=== PATIENT | male | born 1935 | race Caucasian/White ===

== ENCOUNTER 2017-05-28 07:09 | Emergency (ER) | payer OTHER ==
[2017-05-28 08:12] LABS: Urine Bacteria <20 /HPF (NONE SEEN); Urine Culture Reflex Order NOT NEEDED
[2017-05-28 08:13] LABS: Urine Blood TRACE (NEG); Urine Glucose NEGATIVE (NEG); Urine Protein NEGATIVE (NEG); Urine Specific Gravity 1.015 (1.005-1.030)
--- NOTE | 2017-05-28 08:58 | EDPHYS ---
Physician Documentation [facility] Name: Evens Tsang Age: 81 yrs Sex: Male : 1935 Arrival Date: 05/28/2017 Time: 07:10 Bed 19 Private MD: Danika Comer H ED Physician Segun Sherman HPI: 05/28 07:26 This 81 yrs old Male presents to ER via Ambulatory with complaints of Urinary rn Retention. 07:26 This 81 yrs old Male presents to ER via Ambulatory with complaints of Urinary rn Retention. 07:26 The patient presents with urinary symptoms, unable to void. Onset: The symptoms/episode rn began/occurred this morning. Modifying factors: The symptoms are alleviated by nothing, the symptoms are aggravated by nothing. Severity of symptoms: At their worst the symptoms were moderate, in the emergency department the symptoms are unchanged. The patient has experienced a previous episode. Reports unable to void this AM, has happened once before, states last void last night. . Historical: - Allergies: 07:20 No Known Allergies; ss - Home Meds: 07:23 aspirin 81 mg Oral TbEC 1 tab once daily [Active]; gabapentin 100 mg oral cap 3 caps 3 hj times per day [Active]; - PMHx: 07:20 High Cholesterol; ss - PSHx: 07:20 Hernia repair; ss - Immunization history:: Adult Immunizations up to date. - Social history:: Smoking status: Patient/guardian denies using tobacco. - Family history:: not pertinent. - Hospitalizations: : No recent hospitalization is reported. ROS: 07:26 Constitutional: Negative for fever, chills, and weight loss, Eyes: Negative for injury, rn pain, redness, and discharge, Cardiovascular: Negative for chest pain, palpitations, and edema, Respiratory: Negative for shortness of breath, cough, wheezing, and pleuritic chest pain, Abdomen/GI: Negative for nausea, vomiting, diarrhea, and constipation, Back: Negative for injury and pain, MS/Extremity: Negative for injury and deformity, Skin: Negative for injury, rash, and discoloration, Neuro: Negative for headache, weakness, numbness, tingling, and seizure. Exam: 07:26 Constitutional: This is a well developed, well nourished patient who is awake, alert, rn pacing, appears uncomfortable Abdomen/GI: soft, mild suprapubic fullness and tenderness Neuro: Awake and alert, GCS 15, oriented to person, place, time, and situation. Cranial nerves II-XII grossly intact. Motor strength 5/5 in all extremities. Sensory grossly intact. Cerebellar exam normal. Normal gait. Vital Signs: 07:20 BP 159 / 101; Pulse 71; Resp 16; Temp 97.8(TE); Pulse Ox 97% on R/A; Weight 68.04 kg; ss Height 5 ft. 9 in. (175.26 cm); Pain 9/10; 09:12 BP 135 / 78; Pulse 70; Resp 18; Pulse Ox 100% on R/A; hj 07:20 Body Mass Index 22.15 (68.04 kg, 175.26 cm) ss MDM: 07:12 Patient medically screened. rn 08:55 Differential diagnosis: urinary retention. Data reviewed: vital signs, nurses notes, returned item clerk test result(s), and as a result, I will discharge patient. Counseling: I had a detailed discussion with the patient and/or guardian regarding: the historical points, exam findings, and any diagnostic results supporting the discharge/admit diagnosis, lab results, the need for outpatient follow up, to return to the emergency department if symptoms worsen or persist or if there are any questions or concerns that arise at home. Response to treatment: the patient's symptoms have markedly improved after treatment, and as a result, I will discharge patient. Special discussion: I discussed with the patient/guardian in detail that at this point there is no indication for admission to the hospital. It is understood, however, that if the symptoms persist or worsen the patient needs to return immediately for re-evaluation. Based on the history and exam findings, there is no indication for further emergent testing or inpatient evaluation. I discussed with the patient/guardian the need to see the urologist for further evaluation of the symptoms. ED course: Pt with urinary retention, feels much better, most likely due to sinemet, as just started 2 days ago, also with prostate problems, probably compounded, will dc home and instructed to either return for voiding trial or f/u with urology, wants to return here to avoid prolonged avendano. . 05/28 07:18 Order name: Urine Culture rn 05/28 07:18 Order name: Urine Microscopic Only; Complete Time: 08:25 rn 05/28 07:18 Order name: Avendano Leg Bag; Complete Time: 07:47 rn 05/28 07:18 Order name: Urine Dipstick-Ancillary (obtain specimen); Complete Time: 07:47 rn 05/28 07:41 Order name: Urine Dipstick--Ancillary (enter results) bd 05/28 07:42 Order name: Urine Dipstick-Ancillary; Complete Time: 08:25 EDMS Administered Medications: No medications were administered Disposition: 05/28/17 08:57 Discharged to Home. Impression: Urinary Retention. - Condition is Stable. - Discharge Instructions: Avendano Catheter Care, Adult, Urinary Retention, Acute, Male. - Medication Reconciliation Form, Thank You Letter, Antibiotic Education, Prescription Opioid Use form. - Follow up: Jared Jain MD; When: As needed; Reason: Recheck today's complaints, Re-evaluation by your physician. - Problem is new. - Symptoms have improved. Signatures: Dispatcher [employer] EDMS Segun Sherman MD MD rn Smirch, Shelby, RN RN ss Joaquin, Henry, RN RN
--- NOTE | 2017-05-28 08:58 | ER ---
Nurse's Notes [facility] Name: Evens Tsang Age: 81 yrs Sex: Male : 1935 Arrival Date: 05/28/2017 Time: 07:10 Bed 19 Private MD: Danika Comer H Diagnosis: Urinary Retention Presentation: 05/28 07:17 Presenting complaint: Patient states: unable to urinate since two this morning. Pt also ss reports he may be constipated as he has not had a BM in two days. Transition of care: patient was not received from another setting of care. Onset of symptoms was May 28, 2017. Care prior to arrival: None. 07:17 Method Of Arrival: Ambulatory ss 07:17 Acuity: MANISH 3 ss Triage Assessment: 07:21 General: Appears in no apparent distress. uncomfortable, Behavior is calm, cooperative, hj appropriate for age. Pain: Complains of pain in pelvis. Historical: - Allergies: 07:20 No Known Allergies; ss - Home Meds: 07:23 aspirin 81 mg Oral TbEC 1 tab once daily [Active]; gabapentin 100 mg oral cap 3 caps 3 hj times per day [Active]; - PMHx: 07:20 High Cholesterol; ss - PSHx: 07:20 Hernia repair; ss - Immunization history:: Adult Immunizations up to date. - Social history:: Smoking status: Patient/guardian denies using tobacco. - Family history:: not pertinent. - Hospitalizations: : No recent hospitalization is reported. Screenin:21 Abuse screen: Denies threats or abuse. Denies injuries from another. Nutritional hj screening: No deficits noted. Tuberculosis screening: No symptoms or risk factors identified. Fall Risk Fall in past 12 months (25 points). Vital Signs: 07:20 BP 159 / 101; Pulse 71; Resp 16; Temp 97.8(TE); Pulse Ox 97% on R/A; Weight 68.04 kg; ss Height 5 ft. 9 in. (175.26 cm); Pain 9/10; 09:12 BP 135 / 78; Pulse 70; Resp 18; Pulse Ox 100% on R/A; hj 07:20 Body Mass Index 22.15 (68.04 kg, 175.26 cm) ED Course: 07:10 Patient arrived in ED. as 07:10 Danika Comer DO is Private Physician. as 07:12 Segun Sherman MD is Attending Physician. rn 07:19 Triage completed. ss 07:20 Arm band placed on right wrist. ss 07:21 Jono Valdez, RN is Primary Nurse. hj 07:22 Patient has correct armband on for positive identification. Placed in gown. Bed in low hj position. Call light in reach. Side rails up X2. Adult w/ patient. 07:30 Crow cath inserted, using sterile technique, 16 Fr., by me, balloon inflated, to hj gravity drainage, urine specimen collected. returned mike urine. Patient tolerated well. 08:57 Jared Jain MD is Referral Physician. rn 09:10 No provider procedures requiring assistance completed. Patient did not have IV access hj during this emergency room visit. Administered Medications: No medications were administered Outcome: 08:57 Discharge ordered by MD. rn 09:11 Discharged to home ambulatory, with family. hj 09:11 Condition: stable 09:11 Discharge instructions given to patient, Instructed on discharge instructions, follow up and referral plans. Demonstrated understanding of instructions, follow-up care. 09:12 Patient left the ED. hj Signatures: Lary Villarreal Roman, MD MD rn Smirch, Shelby, RN RN Jono Valdez RN RN
[2017-05-28 09:18] VITALS: TEMP 97.8
[2017-05-28 09:19] VITALS: BP 135/78; O2SAT 100
== END 2017-05-28 09:12 | disposition home or self-care (01) ==
LOC: ER 07:09
DX: R33.9 Retention of urine, unspecified (principal); E78.00 Pure hypercholesterolemia, unspecified; Z79.82 Long term (current) use of aspirin
CPT/HCPCS: 51702; 81003; 81015; 87086; 87088; 99284

== ENCOUNTER 2017-05-29 11:38 | Emergency (ER) | payer OTHER ==
--- NOTE | 2017-05-29 13:43 | ER ---
Nurse's Notes [facility] Name: Evens Tsang Age: 81 yrs Sex: Male : 1935 Arrival Date: 05/29/2017 Time: 11:39 Bed 2 Private MD: Diagnosis: Encounter for avendano catheter removal Presentation: 05/29 11:44 Presenting complaint: Patient states: Dr Sherman put a catheter in me yesterday and told ph me to come back today around noon to have it taken out. Transition of care: patient was not received from another setting of care. Onset of symptoms was May 29, 2017. Care prior to arrival: None. 11:44 Method Of Arrival: Ambulatory ph 11:44 Acuity: MANISH 4 ph Triage Assessment: 12:00 General: Appears in no apparent distress. Behavior is calm, cooperative. la1 Historical: - Allergies: 11:54 No Known Allergies; ph - Home Meds: 11:54 aspirin 81 mg Oral TbEC 1 tab once daily [Active]; gabapentin 100 mg Oral cap 3 caps 3 ph times per day [Active]; - PMHx: 11:54 High Cholesterol; ph - PSHx: 11:54 Hernia repair; ph - Immunization history:: Adult Immunizations up to date. - Social history:: Smoking status: Patient/guardian denies using tobacco. - Family history:: not pertinent. - Hospitalizations: : No recent hospitalization is reported. Screenin:59 Abuse screen: Denies threats or abuse. Nutritional screening: No deficits noted. la1 Tuberculosis screening: No symptoms or risk factors identified. Fall Risk No fall in past 12 months (0 pts). No secondary diagnosis (0 pts). No IV (0 pts). Ambulatory Aid- None/Bed Rest/Nurse Assist (0 pts). Gait- Weak (10 pts.). Mental Status- Oriented to own ability (0 pts). Assessment: 11:58 Reassessment: Patient is alert, oriented x 3, equal unlabored respirations, skin la1 warm/dry/pink. Pain: Denies pain. : Avendano catheter removed, pt tolerated well, immediately voided about 25cc of bloody urine. 13:43 Reassessment: No changes from previously documented assessment. Patient is alert, la1 oriented x 3, equal unlabored respirations, skin warm/dry/pink. 13:54 Reassessment: pt able to void without avendano, 100 cc yellow urine voided. 42cc post void la1 residual with bladder scan. Pt states he feels like he is voiding well. Vital Signs: 11:52 BP 142 / 63; Pulse 62; Resp 16; Temp 97.6(TE); Pulse Ox 98% on R/A; Pain 0/10; ph 13:44 BP 134 / 74; Pulse 71; Resp 16; Pulse Ox 100% on R/A; la1 ED Course: 11:39 Patient arrived in ED. as 11:43 Segun Sherman MD is Attending Physician. rn 11:45 Triage completed. ph 11:53 Arm band placed on. ph 11:58 Roman Adames, LA is Primary Nurse. la1 11:59 Bed in low position. la1 13:43 No provider procedures requiring assistance completed. Bladder scan completed. 42 ML la1 post residual. Patient did not have IV access during this emergency room visit. Administered Medications: No medications were administered Outcome: 13:42 Discharge ordered by . rn 13:53 Discharged to home ambulatory. la1 13:53 Condition: stable 13:53 Discharge instructions given to patient, Instructed on discharge instructions. 13:55 Patient left the ED. la1 Signatures: Lary Villarreal Roman, MD MD rn Attema, Lee, RN RN la1 Piper Mcmillan RN RN ph
--- NOTE | 2017-05-29 13:43 | EDPHYS ---
Physician Documentation [facility] Name: Evens Tsang Age: 81 yrs Sex: Male : 1935 Arrival Date: 05/29/2017 Time: 11:39 Bed 2 Private MD: ED Physician Segun Sherman HPI: 05/29 13:11 This 81 yrs old Male presents to ER via Ambulatory with complaints of rn Catheter Removal. 13:11 The patient presents with urinary symptoms. Onset: The symptoms/episode began/occurred rn yesterday. Severity of symptoms: At their worst the symptoms were moderate, in the emergency department the symptoms have improved. The patient has experienced a previous episode. Seen here yesterday, catheter placed by me for urinary retention, patient was apprehensive of prolonged catheter use, asked if could come back today for voiding trial as yesterday we believed retention acutely due to new sinemet medication. . Historical: - Allergies: 11:54 No Known Allergies; ph - Home Meds: 11:54 aspirin 81 mg Oral TbEC 1 tab once daily [Active]; gabapentin 100 mg Oral cap 3 caps 3 ph times per day [Active]; - PMHx: 11:54 High Cholesterol; ph - PSHx: 11:54 Hernia repair; ph - Immunization history:: Adult Immunizations up to date. - Social history:: Smoking status: Patient/guardian denies using tobacco. - Family history:: not pertinent. - Hospitalizations: : No recent hospitalization is reported. ROS: 13:11 Constitutional: Negative for fever, chills, and weight loss, Eyes: Negative for injury, rn pain, redness, and discharge, Cardiovascular: Negative for chest pain, palpitations, and edema, Respiratory: Negative for shortness of breath, cough, wheezing, and pleuritic chest pain, Abdomen/GI: Negative for abdominal pain, nausea, vomiting, diarrhea, and constipation, Back: Negative for injury and pain, MS/Extremity: Negative for injury and deformity, Skin: Negative for injury, rash, and discoloration, Neuro: Negative for headache, weakness, numbness, tingling, and seizure. Exam: 13:11 Constitutional: This is a well developed, well nourished patient who is awake, alert, rn and in no acute distress. Head/Face: Normocephalic, atraumatic. Abdomen/GI: Soft, non-tender, with normal bowel sounds. No distension or tympany. No guarding or rebound. No evidence of tenderness throughout. Vital Signs: 11:52 BP 142 / 63; Pulse 62; Resp 16; Temp 97.6(TE); Pulse Ox 98% on R/A; Pain 0/10; ph 13:44 BP 134 / 74; Pulse 71; Resp 16; Pulse Ox 100% on R/A; la1 MDM: 11:45 Patient medically screened. rn 13:41 Differential diagnosis: urinary retention. Data reviewed: vital signs, nurses notes, rn and as a result, I will discharge patient. Counseling: I had a detailed discussion with the patient and/or guardian regarding: the historical points, exam findings, and any diagnostic results supporting the discharge/admit diagnosis, the need for outpatient follow up, to return to the emergency department if symptoms worsen or persist or if there are any questions or concerns that arise at home. Special discussion: I discussed with the patient/guardian in detail that at this point there is no indication for admission to the hospital. It is understood, however, that if the symptoms persist or worsen the patient needs to return immediately for re-evaluation. ED course: Once patient had urge to void, able to urinate atleast 100cc, post void showed 40cc, feels good, urine clear, wants to go home without avendano, return precautions given and understood.. Administered Medications: No medications were administered Disposition: 05/29/17 13:42 Discharged to Home. Impression: Encounter for avendano catheter removal. - Condition is Stable. - Discharge Instructions: Urinary Retention, Acute, Male. - Medication Reconciliation Form, Thank You Letter, Antibiotic Education, Prescription Opioid Use form. - Follow up: Private Physician; When: As needed; Reason: Recheck today's complaints, Re-evaluation by your physician. - Problem is new. - Symptoms have improved. Signatures: Segun Sherman MD MD rn AttemaRoman RN RN la1 Piper Mcmillan RN RN ph
[2017-05-29 13:58] VITALS: TEMP 97.6
[2017-05-29 14:00] VITALS: BP 134/74; O2SAT 100
== END 2017-05-29 13:55 | disposition home or self-care (01) ==
LOC: ER 11:38
DX: Z46.6 Encounter for fitting and adjustment of urinary device (principal); E78.00 Pure hypercholesterolemia, unspecified; Z79.82 Long term (current) use of aspirin
CPT/HCPCS: 99281

== ENCOUNTER 2017-08-01 06:41 | Emergency (ER) | payer OTHER ==
[2017-08-01 08:13] LABS: Urine Blood NEGATIVE (NEG); Urine Glucose NEGATIVE (NEG); Urine Protein NEGATIVE (NEG); Urine Specific Gravity 1.015 (1.005-1.030)
[2017-08-01 08:19] LABS: Urine Bacteria NONE SEEN /HPF (NONE SEEN); Urine Culture Reflex Order NOT NEEDED; Urine RBC <5 /HPF (NONE SEEN)
[2017-08-01 09:26] LABS: Absolute Lymphocytes (CBC) 1.5 K/uL (0.7-4.9); Absolute Monocytes 0.5 K/uL (0.1-1.3); Absolute Neutrophil 7.9 K/uL (1.8-8.0); Basophils % 0.3 % (0-1.3); Eosinophils % 0.5 % (0-4.4); Hematocrit 41.6 % (39.6-49.0); Lymphocytes % 14.6 % (15.3-44.8); MCH 31.9 pg (27.0-35.0); MCV 95.4 fL (80-100); MPV 8.1 fL (7.6-11.3); Monocytes % 5.3 % (3.3-12.3); RBC Red Blood Cell Count 4.36 M/uL (4.33-5.43)
[2017-08-01 09:42] LABS: Bicarbonate 28 mEq/L (21-31); Glucose Level 102 mg/dL (65-120); Potassium 4.1 mEq/L (3.6-5.0); Sodium Level 140 mEq/L (135-145)
[2017-08-01 09:44] LABS: ALT/SGPT 11 IU/L (10-60); AST/SGOT 17 IU/L (10-42); Albumin 3.8 g/dL (3.2-5.5); Alkaline Phosphatase 42 IU/L (42-121); BUN Blood Urea Nitrogen 18 mg/dL (6-20); Bilirubin Total 0.7 mg/dL (0.3-1.2); Protein, Total 6.6 g/dL (6.0-8.3)
--- NOTE | 2017-08-01 10:59 | RAD REPORT ---
EXAM DESCRIPTION: CT - Abdomen Pelvis W Contrast - 08/01/2017 10:30 am CLINICAL HISTORY: Abdominal pain/urinary retention COMPARISON: 2015 TECHNIQUE: Computed axial tomography of the abdomen pelvis was obtained. 100 cc Isovue-300 was admin istered intravenously. Oral contrast was not requested which limits evaluation of bowel. All CT scans are performed using dose optimization technique as appropriate and may include automated exposure control or mA/KV adjustment according to patient size. FINDINGS: A 13 millimeter peripherally enhancing lesion within the dome of the liver is unchanged in size and may represent a hemangioma. 23 millimeter cyst within the right lobe is unchanged. The spleen, pancreas and adrenals are unremarkable. Tiny renal cysts are present. A 1 millimeter nonobstructing right renal calculus is present. There is no evidence of diverticulitis. A moderate amount of stool is present throughout the colon. The prostate gland is markedly enlarged. A Crow catheter is present within the bladder. The bladder wall is thickened. Inguinal hernia repair is noted. 5 IMPRESSION: Tiny nonobstructing right renal calculus Marked prostatic hypertrophy. Thickening of the bladder wall probably related to a chronic bladder outlet obstruction and/or cystit is
--- NOTE | 2017-08-01 11:18 | ER ---
Nurse's Notes [facility] Name: Evens Tsang Age: 82 yrs Sex: Male : 1935 Arrival Date: 08/01/2017 Time: 06:42 Bed 16 Private MD: Danika Comer H Diagnosis: Retention of urine-Prostatic hypertrophy Presentation: 08/01 06:49 Presenting complaint: Patient states: he has not been able to void since 1999 last aa1 night. Reports this has happened before in the past and he had to be sent home with a avendano catheter. Transition of care: patient was not received from another setting of care. Onset of symptoms was July 31, 2017 at 20:00. Risk Assessment: Do you want to hurt yourself or someone else? Patient reports no desire to harm self or others. Initial Sepsis Screen: Does the patient meet any 2 criteria? No. Patient's initial sepsis screen is negative. Does the patient have a suspected source of infection? No. Patient's initial sepsis screen is negative. Care prior to arrival: None. 06:49 Method Of Arrival: Ambulatory aa1 06:49 Acuity: MANISH 3 aa1 Historical: - Allergies: 06:50 No Known Allergies; aa1 - Home Meds: 06:50 aspirin 81 mg Oral TbEC 1 tab once daily [Active]; gabapentin 100 mg Oral cap 3 caps 3 aa1 times per day [Active]; - PMHx: 06:50 High Cholesterol; Glaucoma; neuropathy; aa1 - PSHx: 06:50 Hernia repair; aa1 - Immunization history:: Flu vaccine is up to date. - Social history:: Smoking status: Patient/guardian denies using tobacco. - Ebola Screening: : No symptoms or risks identified at this time. Screenin:58 Abuse screen: Denies threats or abuse. Denies injuries from another. Nutritional hb screening: No deficits noted. Tuberculosis screening: No symptoms or risk factors identified. Fall Risk None identified. Assessment: 07:00 General: Appears in no apparent distress. uncomfortable, slender, Behavior is calm, ph cooperative, appropriate for age, Reports Being unable to urinate since last night Denies fever. Pain: Complains of pain in suprapubic area. Neuro: Level of Consciousness is awake, alert, obeys commands, Oriented to person, place, time, situation. Cardiovascular: Capillary refill < 3 seconds Patient's skin is warm and dry. Respiratory: Airway is patent Respiratory effort is even, unlabored. GI: Patient currently denies diarrhea, nausea, vomiting. : Reports inability to void, since "last night" pain in suprapubic area. Derm: Skin is intact, is healthy with good turgor, Skin is pink, warm \\T\\ dry. Musculoskeletal: Circulation, motion, and sensation intact. Range of motion: intact in all extremities. 08:00 Reassessment: Patient appears in no apparent distress at this time. Patient and/or ph family updated on plan of care and expected duration. Pain level reassessed. Patient is alert, oriented x 3, equal unlabored respirations, skin warm/dry/pink. Pt resting quietly, Avendano in place, awaiting lab results, family at bedside. 09:00 Reassessment: Patient appears in no apparent distress at this time. No changes from ph previously documented assessment. Patient and/or family updated on plan of care and expected duration. Pain level reassessed. Patient is alert, oriented x 3, equal unlabored respirations, skin warm/dry/pink. 10:30 Reassessment: Patient appears in no apparent distress at this time. Patient and/or ph family updated on plan of care and expected duration. Pain level reassessed. Patient is alert, oriented x 3, equal unlabored respirations, skin warm/dry/pink. Pt resting quietly, awaiting CT results. 11:45 Reassessment: Patient appears in no apparent distress at this time. Patient and/or ph family updated on plan of care and expected duration. Pain level reassessed. Patient is alert, oriented x 3, equal unlabored respirations, skin warm/dry/pink. Pt d/c home w/ leg bag in place, instructed to follow up w/ urologist in 2-3 days. Vital Signs: 06:50 BP 157 / 85; Pulse 68; Resp 18; Temp 97.6; Pulse Ox 99% on R/A; Weight 68.04 kg; Height aa1 5 ft. 9 in. (175.26 cm); Pain 7/10; 08:30 BP 155 / 81; Pulse 72; Resp 18; Pulse Ox 99% on R/A; ph 09:30 BP 137 / 71; Pulse 62; Resp 18; Pulse Ox 99% on R/A; ph 10:30 BP 148 / 72; Pulse 63; Resp 18; Pulse Ox 98% on R/A; ph 11:45 BP 148 / 78; Pulse 64; Resp 18; Temp 97.8; Pulse Ox 99% on R/A; ph 06:50 Body Mass Index 22.15 (68.04 kg, 175.26 cm) aa1 ED Course: 06:42 Patient arrived in ED. am2 06:42 Danika Comer DO is Private Physician. am2 06:48 Prem Rodriguez NP is PHCP. pm1 06:48 Cabrera Lopez MD is Attending Physician. pm1 06:49 Triage completed. aa1 06:50 Arm band placed on left wrist. Patient placed in an exam room, on a stretcher. aa1 07:03 Avendano cath inserted, using sterile technique, 18 Fr., by ak, balloon inflated, to ea gravity drainage. 07:42 Sandra Caraballo, RN is Primary Nurse. hb 08:45 Radiology exam delayed due to lab results not completed at this time. (BUN/Creatinine). vr 09:11 Inserted saline lock: 22 gauge in left forearm, using aseptic technique. inserted by russell Morris, technicians and trades workers. 09:12 Patient has correct armband on for positive identification. Bed in low position. Call ph light in reach. Side rails up X 1. Pulse ox on. NIBP on. Warm blanket given. 10:27 CT completed. Patient tolerated procedure well. Patient moved to CT via stretcher. mw3 Patient moved back from CT. 10:31 CT Abd/Pelvis - W/Contrast: IV contrast only In Process Unspecified. EDMS 11:08 Primary Nurse role handed off by Sandra Caraballo, RN ph 11:08 Piper Mcmillan, RN is Primary Nurse. ph 11:16 Jared Jain MD is Referral Physician. pm1 11:45 No provider procedures requiring assistance completed. IV discontinued, intact, ph bleeding controlled, No redness/swelling at site. Pressure dressing applied. Administered Medications: No medications were administered Outcome: 11:17 Discharge ordered by . pm1 11:46 Patient left the ED. ph 11:46 Discharged to home ambulatory, with family. ph 11:46 Condition: good 11:46 Discharge instructions given to patient, family, Instructed on discharge instructions, follow up and referral plans. medication usage, Avendano care Demonstrated understanding of instructions, follow-up care, medications. Signatures: Dispatcher [employer] Britni Rosenberg RN RN aa1 Kristen Byrne Patricia, RN RN ph Prem Rodriguez NP BOARD WINDER pm1 Sandra Caraballo RN RN Gela Perry am2 Brenda Michaud RN RN ea Willis, Michelle mw3 Corrections: (The following items were deleted from the chart) 09:12 09:11 Inserted saline lock: 22 gauge in left forearm, using aseptic technique. ph ph
--- NOTE | 2017-08-01 11:18 | EDPHYS ---
Physician Documentation [facility] Name: Evens Tsang Age: 82 yrs Sex: Male : 1935 Arrival Date: 08/01/2017 Time: 06:42 Bed 16 Private MD: Danika Comer H ED Physician Cabrera Lopez HPI: 08/01 11:00 This 82 yrs old Male presents to ER via Ambulatory with complaints of Urinary pm1 Retention. 11:00 The patient presents with urinary symptoms, retention, unable to void. Onset: The pm1 symptoms/episode began/occurred this morning, last night. Modifying factors: The symptoms are alleviated by nothing, the symptoms are aggravated by nothing. Associated signs and symptoms: Pertinent positives: constipation, Pertinent negatives: abdominal pain, diarrhea, fever, nausea, vomiting. Severity of symptoms: in the emergency department the symptoms are actually worse. The patient has experienced a previous episode, approximately 2 months ago. The patient has not recently seen a physician. patient with prior episode in May of this year that he attributed to a new medication. Patient without any issues with his urination since May when he had a catheter placed for one day. Historical: - Allergies: 06:50 No Known Allergies; aa1 - Home Meds: 06:50 aspirin 81 mg Oral TbEC 1 tab once daily [Active]; gabapentin 100 mg Oral cap 3 caps 3 aa1 times per day [Active]; - PMHx: 06:50 High Cholesterol; Glaucoma; neuropathy; aa1 - PSHx: 06:50 Hernia repair; aa1 - Immunization history:: Flu vaccine is up to date. - Social history:: Smoking status: Patient/guardian denies using tobacco. - Ebola Screening: : No symptoms or risks identified at this time. ROS: 11:00 Constitutional: Negative for fever, chills, and weight loss, Eyes: Negative for injury, pm1 pain, redness, and discharge, ENT: Negative for injury, pain, and discharge, Neck: Negative for injury, pain, and swelling, Cardiovascular: Negative for chest pain, palpitations, and edema, Respiratory: Negative for shortness of breath, cough, wheezing, and pleuritic chest pain, Abdomen/GI: Negative for abdominal pain, nausea, vomiting, diarrhea, and constipation, Back: Negative for injury and pain. 11:00 MS/Extremity: Negative for injury and deformity, Skin: Negative for injury, rash, and discoloration, Neuro: Negative for headache, weakness, numbness, tingling, and seizure. 11:00 : Positive for Urinary retention, Negative for burning with urination, foul smelling urine. Exam: 11:00 Constitutional: This is a well developed, well nourished patient who is awake, alert, pm1 and in no acute distress. Head/Face: Normocephalic, atraumatic. Eyes: Pupils equal round and reactive to light, extra-ocular motions intact. Lids and lashes normal. Conjunctiva and sclera are non-icteric and not injected. Cornea within normal limits. Periorbital areas with no swelling, redness, or edema. ENT: Nares patent. No nasal discharge, no septal abnormalities noted. Tympanic membranes are normal and external auditory canals are clear. Oropharynx with no redness, swelling, or masses, exudates, or evidence of obstruction, uvula midline. Mucous membranes moist. Neck: Trachea midline, no thyromegaly or masses palpated, and no cervical lymphadenopathy. Supple, full range of motion without nuchal rigidity, or vertebral point tenderness. No Meningismus. Chest/axilla: Normal chest wall appearance and motion. Nontender with no deformity. No lesions are appreciated. Cardiovascular: Regular rate and rhythm with a normal S1 and S2. No gallops, murmurs, or rubs. Normal PMI, no JVD. No pulse deficits. Respiratory: Lungs have equal breath sounds bilaterally, clear to auscultation and percussion. No rales, rhonchi or wheezes noted. No increased work of breathing, no retractions or nasal flaring. 11:00 Back: No spinal tenderness. No costovertebral tenderness. Full range of motion. Skin: Warm, dry with normal turgor. Normal color with no rashes, no lesions, and no evidence of cellulitis. 11:00 Abdomen/GI: Inspection: abdomen appears normal, Bowel sounds: normal, Palpation: tenderness to percussion, is appreciated in the suprapubic area with bladder distention. 11:00 Neuro: Orientation: is normal, Motor: is normal, moves all fours. Vital Signs: 06:50 BP 157 / 85; Pulse 68; Resp 18; Temp 97.6; Pulse Ox 99% on R/A; Weight 68.04 kg; Height aa1 5 ft. 9 in. (175.26 cm); Pain 7/10; 08:30 BP 155 / 81; Pulse 72; Resp 18; Pulse Ox 99% on R/A; ph 09:30 BP 137 / 71; Pulse 62; Resp 18; Pulse Ox 99% on R/A; ph 10:30 BP 148 / 72; Pulse 63; Resp 18; Pulse Ox 98% on R/A; ph 11:45 BP 148 / 78; Pulse 64; Resp 18; Temp 97.8; Pulse Ox 99% on R/A; ph 06:50 Body Mass Index 22.15 (68.04 kg, 175.26 cm) aa1 MDM: 06:51 Patient medically screened. pm1 11:16 Data reviewed: vital signs. Data interpreted: Pulse oximetry: on room air is 99 %. pm1 Interpretation: normal. Counseling: I had a detailed discussion with the patient and/or guardian regarding: the historical points, exam findings, and any diagnostic results supporting the discharge/admit diagnosis, lab results, radiology results, the need for outpatient follow up, to return to the emergency department if symptoms worsen or persist or if there are any questions or concerns that arise at home. 08/01 06:51 Order name: Urine Microscopic Only; Complete Time: 08:23 pm1 08/01 08:04 Order name: Urine Dipstick--Ancillary (enter results); Complete Time: 08:23 ag 08/01 08:43 Order name: Urine Culture pm1 08/01 08:43 Order name: CBC with Diff; Complete Time: 09:49 pm1 08/01 08:43 Order name: CMP; Complete Time: 09:49 pm1 08/01 08:43 Order name: CT Abd/Pelvis - W/Contrast: IV contrast only; Complete Time: 11:13 pm1 08/01 06:51 Order name: Urine Dipstick-Ancillary (obtain specimen); Complete Time: 07:50 pm1 08/01 08:43 Order name: IV Saline Lock; Complete Time: 09:36 pm1 Administered Medications: No medications were administered Disposition: 19:04 Co-signature as Attending Physician, Cabrera Lopez MD. pkl Disposition: 08/01/17 11:17 Discharged to Home. Impression: Retention of urine - Prostatic hypertrophy. - Condition is Stable. - Discharge Instructions: Benign Prostatic Hypertrophy, Crow Catheter Care, Adult, Urinary Retention, Acute, Male. - Medication Reconciliation Form, Thank You Letter form. - Follow up: Emergency Department; When: As needed; Reason: Worsening of condition. Follow up: Jared Jain MD; When: 2 - 3 days; Reason: Recheck today's complaints, Continuance of care, Re-evaluation by your physician. - Problem is new. - Symptoms have improved. Signatures: Dispatcher [employer] EDMS Britni Bateman RN RN aa1 Cabrera Lopez MD MD pkl Hall, Patricia, RN RN Prem Myers, SWEDGER SWEDGER pm1 Corrections: (The following items were deleted from the chart) 11:46 11:17 08/01/2017 11:17 Discharged to Home. Impression: Retention of urine - Prostatic ph hypertrophy. Condition is Stable. Forms are Medication Reconciliation Form, Thank You Letter, Antibiotic Education, Prescription Opioid Use. Follow up: Emergency Department; When: As needed; Reason: Worsening of condition. Follow up: Jared Jain; When: 2 - 3 days; Reason: Recheck today's complaints, Continuance of care, Re-evaluation by your physician. Problem is new. Symptoms have improved. pm1
[2017-08-01 12:08] VITALS: BP 157/85; TEMP 97.6; O2SAT 99
== END 2017-08-01 11:46 | disposition home or self-care (01) ==
LOC: ER 06:41
DX: N40.0 Benign prostatic hyperplasia without lower urinary tract symptoms (principal); E78.00 Pure hypercholesterolemia, unspecified; Z79.82 Long term (current) use of aspirin
CPT/HCPCS: 36415; 74177; 80053; 85025; 87086; 87088; Q9967; 51702; 81003; 81015; 99285

== ENCOUNTER 2017-08-03 07:27 | Emergency (ER) | payer OTHER ==
--- NOTE | 2017-08-03 08:32 | EDPHYS ---
Physician Documentation [facility] Name: Evens Tsang Age: 82 yrs Sex: Male : 1935 Arrival Date: 08/03/2017 Time: 07:29 Bed 13 Private MD: Danika Comer H ED Physician Serjio Long HPI: 08/03 07:36 This 82 yrs old Male presents to ER via Unassigned with complaints of Cath kav Problem. 07:50 Onset: The symptoms/episode began/occurred acutely. Associated signs and symptoms: kav Pertinent positives: Urine is leaking around current avendano catheter., Pertinent negatives:. Modifying factors: The patient symptoms are alleviated by nothing, the patient symptoms are aggravated by urination. The patient has experienced a previous episode, approximately 2 days ago. The patient has been recently seen by a physician: Dr. Jain/Urology. Seen by Dr. Jain on 08/02/17 and is scheduled for Cystoscopy on 08/05/[address] Jain. 07:55 The patient presents with a Avendano catheter problem, is leaking urine. kav 07:55 The patient has been recently seen at the [facility] Emergency kav Department, yesterday, for similar complaints Urine Analysis and Urine Culture from ED visit on 08/01/17 were reviewed and both are with negative results. Historical: - Allergies: 07:45 NKA; iw - Home Meds: 07:45 aspirin 81 mg Oral TbEC 1 tab once daily [Active]; gabapentin 100 mg Oral cap 3 caps 3 iw times per day [Active]; Flomax 0.4 mg Oral cp24 1 cap once daily [Active]; - PMHx: 07:45 Glaucoma; High Cholesterol; neuropathy; iw - PSHx: 07:45 Hernia repair; Appendectomy; iw - Immunization history:: Adult Immunizations. - Ebola Screening: : Patient negative for fever greater than or equal to 101.5 degrees Fahrenheit, and additional compatible Ebola Virus Disease symptoms Patient denies exposure to infectious person Patient denies travel to an Ebola-affected area in the 21 days before illness onset No symptoms or risks identified at this time. - Family history:: not pertinent. - Social history:: Smoking status: Patient/guardian denies using tobacco. - Hospitalizations: : No recent hospitalization is reported. - History obtained from: daughter. ROS: 07:55 Constitutional: Negative for fever, chills, and weight loss, Eyes: Negative for injury, kav pain, redness, and discharge, ENT: Negative for injury, pain, and discharge, Neck: Negative for injury, pain, and swelling, Cardiovascular: Negative for chest pain, palpitations, and edema, Respiratory: Negative for shortness of breath, cough, wheezing, and pleuritic chest pain, Abdomen/GI: Negative for abdominal pain, nausea, vomiting, diarrhea, and constipation, Back: Negative for injury and pain, MS/Extremity: Negative for injury and deformity, Skin: Negative for injury, rash, and discoloration, Neuro: Negative for headache, weakness, numbness, tingling, and seizure, Psych: Negative for depression, anxiety, suicide ideation, homicidal ideation, and hallucinations, Allergy/Immunology: Negative for hives, rash, and allergies, Endocrine: Negative for neck swelling, polydipsia, polyuria, polyphagia, and marked weight changes, Hematologic/Lymphatic: Negative for swollen nodes, abnormal bleeding, and unusual bruising. 07:55 : Positive for urinary symptoms, Negative for urinary frequency, burning with urination, foul smelling urine, penile discharge, penile pain. Exam: 07:55 Constitutional: This is a well developed, well nourished patient who is awake, alert, kav and in no acute distress. Head/Face: Normocephalic, atraumatic. Eyes: Pupils equal round and reactive to light, extra-ocular motions intact. Lids and lashes normal. Conjunctiva and sclera are non-icteric and not injected. Cornea within normal limits. Periorbital areas with no swelling, redness, or edema. ENT: Nares patent. No nasal discharge, no septal abnormalities noted. Tympanic membranes are normal and external auditory canals are clear. Oropharynx with no redness, swelling, or masses, exudates, or evidence of obstruction, uvula midline. Mucous membranes moist. Neck: Trachea midline, no thyromegaly or masses palpated, and no cervical lymphadenopathy. Supple, full range of motion without nuchal rigidity, or vertebral point tenderness. No Meningismus. Chest/axilla: Normal chest wall appearance and motion. Nontender with no deformity. No lesions are appreciated. Cardiovascular: Regular rate and rhythm with a normal S1 and S2. No gallops, murmurs, or rubs. Normal PMI, no JVD. No pulse deficits. Respiratory: Lungs have equal breath sounds bilaterally, clear to auscultation and percussion. No rales, rhonchi or wheezes noted. No increased work of breathing, no retractions or nasal flaring. Abdomen/GI: Soft, non-tender, with normal bowel sounds. No distension or tympany. No guarding or rebound. No evidence of tenderness throughout. Back: No spinal tenderness. No costovertebral tenderness. Full range of motion. Skin: Warm, dry with normal turgor. Normal color with no rashes, no lesions, and no evidence of cellulitis. MS/ Extremity: Pulses equal, no cyanosis. Neurovascular intact. Full, normal range of motion. Neuro: Awake and alert, GCS 15, oriented to person, place, time, and situation. Cranial nerves II-XII grossly intact. Motor strength 5/5 in all extremities. Sensory grossly intact. Cerebellar exam normal. Normal gait. Psych: Awake, alert, with orientation to person, place and time. Behavior, mood, and affect are within normal limits. 07:55 : Male external genitalia: normal, Bladder: is normal, a avendano is noted, leg bag. Vital Signs: 07:44 BP 156 / 85; Pulse 67; Resp 18 S; Temp 97.9; Pulse Ox 98% on R/A; Weight 68.04 kg; iw Height 5 ft. 9 in. (175.26 cm); Pain 0/10; 08:38 BP 142 / 81; Pulse 63; Resp 16; Pulse Ox 100% ; Pain 0/10; jl7 07:44 Body Mass Index 22.15 (68.04 kg, 175.26 cm) iw MDM: 07:35 Medical screening is not applicable. kav 07:55 Data reviewed: vital signs, nurses notes. kav 08:29 ED course: avendano catheter replaced with coudet catheter 20 lao with leg bag. urine kav return in leg bag is clear yellow. 08/03 07:49 Order name: Avendano Leg Bag; Complete Time: 08:34 kav 08/03 07:49 Order name: Avendano-Two way; Complete Time: 08:34 kav Administered Medications: No medications were administered Disposition: 15:15 Co-signature as Attending Physician, Serjio Long MD I agree with the assessment and kdr plan of care. Disposition: 08/03/17 08:31 Discharged to Home. Impression: Leakage of urinary (indwelling) catheter. - Condition is Stable. - Discharge Instructions: Urinary Retention, Acute, Male, [id number]. - Medication Reconciliation Form, Thank You Letter form. - Follow up: Jared Jain MD; When: 1 - 2 days; Reason: Recheck today's complaints, Continuance of care, Re-evaluation by your physician. - Problem is chronic. - Symptoms have improved. - Notes: urinary catheter malfunction, "...leaking urine". your urinary catheter has been replaced. please f/u with dr. jain/urology for your schedule cystoscopy on 08/05/17. Signatures: Serjio Long MD MD kdr Vern, Katherine, DELIVERY ROUTE DRIVER DELIVERY ROUTE DRIVER Trish Stratton, RN RN Jayne Mohan RN RN jl7 Corrections: (The following items were deleted from the chart) 08:39 08:31 08/03/2017 08:31 Discharged to Home. Impression: Leakage of urinary (indwelling) jl7 catheter. Condition is Stable. Forms are Medication Reconciliation Form, Thank You Letter, Antibiotic Education, Prescription Opioid Use. Follow up: Jared Jain; When: 1 - 2 days; Reason: Recheck today's complaints, Continuance of care, Re-evaluation by your physician. Problem is chronic. Symptoms have improved. kalatisha
--- NOTE | 2017-08-03 08:32 | ER ---
Nurse's Notes [facility] Name: Evens Tsang Age: 82 yrs Sex: Male : 1935 Arrival Date: 08/03/2017 Time: 07:29 Bed 13 Private MD: Danika Comer H Diagnosis: Leakage of urinary (indwelling) catheter Presentation: 08/03 07:42 Presenting complaint: Patient states: was seen here on Tuesday for urinary retention, iw had Crow placed and followed up with Dr. Jain, is due for a procedure on Tuesday but catheter started to leak last night. Transition of care: patient was not received from another setting of care. Onset of symptoms was August 03, 2017. Risk Assessment: Do you want to hurt yourself or someone else? Patient reports no desire to harm self or others. Initial Sepsis Screen: Does the patient meet any 2 criteria? No. Patient's initial sepsis screen is negative. Does the patient have a suspected source of infection? No. Patient's initial sepsis screen is negative. Care prior to arrival: None. 07:42 Method Of Arrival: Ambulatory iw 07:42 Acuity: MANISH 4 iw Historical: - Allergies: 07:45 NKA; iw - Home Meds: 07:45 aspirin 81 mg Oral TbEC 1 tab once daily [Active]; gabapentin 100 mg Oral cap 3 caps 3 iw times per day [Active]; Flomax 0.4 mg Oral cp24 1 cap once daily [Active]; - PMHx: 07:45 Glaucoma; High Cholesterol; neuropathy; iw - PSHx: 07:45 Hernia repair; Appendectomy; iw - Immunization history:: Adult Immunizations. - Ebola Screening: : Patient negative for fever greater than or equal to 101.5 degrees Fahrenheit, and additional compatible Ebola Virus Disease symptoms Patient denies exposure to infectious person Patient denies travel to an Ebola-affected area in the 21 days before illness onset No symptoms or risks identified at this time. - Family history:: not pertinent. - Social history:: Smoking status: Patient/guardian denies using tobacco. - Hospitalizations: : No recent hospitalization is reported. - History obtained from: daughter. Screenin:40 Abuse screen: Denies threats or abuse. Denies injuries from another. Nutritional jl7 screening: No deficits noted. Tuberculosis screening: No symptoms or risk factors identified. Fall Risk Gait- Total Francisco Fall Scale indicates No Risk (0-24 pts). Assessment: 07:40 General: Appears in no apparent distress. uncomfortable, Behavior is calm, cooperative, jl7 appropriate for age. Pain: Denies pain. Neuro: Level of Consciousness is awake, alert, obeys commands, Oriented to person, place, time. Cardiovascular: Patient's skin is warm and dry. Respiratory: Airway is patent Respiratory effort is even, unlabored, Respiratory pattern is regular, symmetrical. : Crow in place to gravity drainage Urine is blood tinged, pt reports voiding around the catheter. Derm: Skin is pink, warm \T\ dry. Vital Signs: 07:44 BP 156 / 85; Pulse 67; Resp 18 S; Temp 97.9; Pulse Ox 98% on R/A; Weight 68.04 kg; iw Height 5 ft. 9 in. (175.26 cm); Pain 0/10; 08:38 BP 142 / 81; Pulse 63; Resp 16; Pulse Ox 100% ; Pain 0/10; jl7 07:44 Body Mass Index 22.15 (68.04 kg, 175.26 cm) iw ED Course: 07:29 Patient arrived in ED. mr 07:30 Danika Comer, is Private Physician. mr 07:35 [facility] kav 07:35 Serjio Long MD is Attending Physician. kav 07:35 Jayne Pickard, [place] is Primary Nurse. jl7 07:40 Patient has correct armband on for positive identification. Placed in gown. Bed in low jl7 position. Call light in reach. Side rails up X 1. Pulse ox on. NIBP on. 07:44 Triage completed. iw 07:44 Arm band placed on. iw 08:18 Crow cath removed intact, balloon deflated. jl7 08:20 Crow cath inserted, using sterile technique, 20 Fr., by ms, balloon inflated, to jl7 gravity drainage, returned bloody urine. Patient tolerated well. 08:30 Jared Jain MD is Referral Physician. kav 08:33 No provider procedures requiring assistance completed. Patient did not have IV access jl7 during this emergency room visit. Administered Medications: No medications were administered Outcome: 08:31 Discharge ordered by . sky 08:38 Discharged to home ambulatory, with family. jl7 08:38 Condition: stable 08:38 Discharge instructions given to patient, family, Instructed on discharge instructions, follow up and referral plans. Demonstrated understanding of instructions, follow-up care. 08:39 Patient left the ED. jl7 Signatures: Aisha Justice, PMP PMP Anneliese Farley mr Trish Davis RN RN iw Jayne Pickard RN RN jl7 Corrections: (The following items were deleted from the chart) 07:44 07:42 Presenting complaint: iw ana cristina
[2017-08-03 08:42] VITALS: TEMP 97.9
[2017-08-03 08:44] VITALS: BP 142/81; O2SAT 100
== END 2017-08-03 08:39 | disposition home or self-care (01) ==
LOC: ER 07:27
DX: T83.038A Leakage of other urinary catheter, initial encounter (principal); E78.00 Pure hypercholesterolemia, unspecified; Y84.6 Urinary catheterization as the cause of abnormal reaction of the patient, or of later complication, without mention of misadventure at the time of the procedure
CPT/HCPCS: 51702; 99284

== ENCOUNTER 2019-07-15 02:43 | Observation (INO) | payer OTHER ==
[2019-07-15] MEDS ORDERED: BISACODYL 10 MG RECTAL SUPP ONE (03:39)
[2019-07-15] MEDS ORDERED: LACTULOSE 20 GM/30 ML UCUP ONE ×3 (03:39→09:06)
[2019-07-15] MEDS ORDERED: NA CHLORIDE 0.9% 1,000 ML ONE ×2 (03:39→09:11)
[2019-07-15 03:57] LABS: Absolute Lymphocytes (CBC) 2.1 K/uL (0.7-4.9); Basophils % 0.5 % (0-1.3); Hematocrit 44.6 % (39.6-49.0); MPV 7.9 fL (7.6-11.3); RBC Red Blood Cell Count 4.72 M/uL (4.33-5.43)
[2019-07-15 04:06] LABS: Protime INR 1.08
[2019-07-15 04:16] LABS: ALT/SGPT 23 U/L (12-78); AST/SGOT 18 U/L (15-37); Albumin 3.5 g/dL (3.4-5.0); Alkaline Phosphatase 113 U/L (45-117); BUN Blood Urea Nitrogen 28 mg/dL (7-18); Bicarbonate 20 mmol/L (21-32); Bilirubin Direct 0.2 mg/dL (0-0.2); Glucose Level 96 mg/dL (74-106); Lipase 64 U/L (73-393); Magnesium 2.2 mg/dL (1.8-2.4); NT PRO-BNP 137 pg/mL (<450); Potassium 3.7 mmol/L (3.5-5.1); Protein, Total 7.2 g/dL (6.4-8.2); Sodium Level 141 mmol/L (136-145); Troponin (Emerg Dept Use Only) < 0.02 ng/mL (0.0-0.045)
--- NOTE | 2019-07-15 06:23 | EDPHYS ---
Physician Documentation [facility] Name: Evens Tsang Age: 84 yrs Sex: Male : 1935 Arrival Date: 07/15/2019 Time: 03:18 Bed 25 Private MD: ELLA Physician Fuentes Sanchez HPI: 07/14 03:21 This 84 yrs old Male presents to ER via Unassigned with complaints of priya constipation and back pain. 03:21 The patient presents with abdominal pain in the upper abdomen, in the lower abdomen, priya abdominal distention. Onset: The symptoms/episode began/occurred 2 day(s) ago. The patient presents with pain that is acute, with no known mechanism of injury. The symptoms are located in the low back. Onset: The symptoms/episode began/occurred 2 day(s) ago. The pain does not radiate. Associated signs and symptoms: Pertinent positives: abdominal pain, constipation. The problem was sustained without known cause, constipation. Modifying factors: The patient symptoms are alleviated by nothing, the patient symptoms are aggravated by any movement. Historical: - Allergies: 03:23 NKA; lp1 - Home Meds: 03:23 Tramadol Oral [Active]; Methocarbamol Oral [Active]; Methylprednisolone Oral [Active]; lp1 - PMHx: 03:23 Glaucoma; High Cholesterol; neuropathy; lp1 - PSHx: 03:23 Hernia repair; lp1 - Immunization history:: Adult Immunizations up to date. - Social history:: Smoking status: Patient denies any tobacco usage or history of. - Family history:: not pertinent. ROS: 03:21 Constitutional: Negative for fever, chills, and weight loss, Eyes: Negative for injury, priya pain, redness, and discharge, ENT: Negative for injury, pain, and discharge, Neck: Negative for injury, pain, and swelling, Cardiovascular: Negative for chest pain, palpitations, and edema, Respiratory: Negative for shortness of breath, cough, wheezing, and pleuritic chest pain, : Negative for injury, bleeding, discharge, and swelling, MS/Extremity: Negative for injury and deformity, Skin: Negative for injury, rash, and discoloration, Neuro: Negative for headache, weakness, numbness, tingling, and seizure, Psych: Negative for depression, anxiety, suicide ideation, homicidal ideation, and hallucinations, Allergy/Immunology: Negative for hives, rash, and allergies, Endocrine: Negative for neck swelling, polydipsia, polyuria, polyphagia, and marked weight changes, Hematologic/Lymphatic: Negative for swollen nodes, abnormal bleeding, and unusual bruising. 03:21 Abdomen/GI: Positive for abdominal pain, constipation, abdominal cramps. 03:21 Back: Positive for decreased range of motion, pain at rest, pain with movement, of the lumbar area and sacrum. Exam: 03:21 Constitutional: This is a well developed, well nourished patient who is awake, alert, priya and in no acute distress. Head/Face: Normocephalic, atraumatic. Eyes: Pupils equal round and reactive to light, extra-ocular motions intact. Lids and lashes normal. Conjunctiva and sclera are non-icteric and not injected. Cornea within normal limits. Periorbital areas with no swelling, redness, or edema. ENT: Nares patent. No nasal discharge, no septal abnormalities noted. Tympanic membranes are normal and external auditory canals are clear. Oropharynx with no redness, swelling, or masses, exudates, or evidence of obstruction, uvula midline. Mucous membranes moist. Neck: Trachea midline, no thyromegaly or masses palpated, and no cervical lymphadenopathy. Supple, full range of motion without nuchal rigidity, or vertebral point tenderness. No Meningismus. Chest/axilla: Normal chest wall appearance and motion. Nontender with no deformity. No lesions are appreciated. Cardiovascular: Regular rate and rhythm with a normal S1 and S2. No gallops, murmurs, or rubs. Normal PMI, no JVD. No pulse deficits. Respiratory: Lungs have equal breath sounds bilaterally, clear to auscultation and percussion. No rales, rhonchi or wheezes noted. No increased work of breathing, no retractions or nasal flaring. Abdomen/GI: Soft, non-tender, with normal bowel sounds. No distension or tympany. No guarding or rebound. No evidence of tenderness throughout. Male : Normal genitalia with no discharge or lesions. Skin: Warm, dry with normal turgor. Normal color with no rashes, no lesions, and no evidence of cellulitis. MS/ Extremity: Pulses equal, no cyanosis. Neurovascular intact. Full, normal range of motion. Neuro: Awake and alert, GCS 15, oriented to person, place, time, and situation. Cranial nerves II-XII grossly intact. Motor strength 5/5 in all extremities. Sensory grossly intact. Cerebellar exam normal. Normal gait. Psych: Awake, alert, with orientation to person, place and time. Behavior, mood, and affect are within normal limits. 03:21 Back: pain, that is moderate, ROM is painful, normal spinal alignment noted, CVA tenderness, is absent, vertebral tenderness, is not appreciated, muscle spasm, is not present. Vital Signs: 03:19 BP 159 / 85; Pulse 76; Resp 18; Temp 97.8(O); Pulse Ox 99% on R/A; Weight 74.84 kg (R); lp1 Height 5 ft. 9 in. (175.26 cm); 05:00 BP 146 / 80; Pulse 70; Resp 16; Pulse Ox 99% on R/A; rr5 06:10 BP 141 / 80; Pulse 65; Resp 17; Pulse Ox 99% ; rr5 03:19 Body Mass Index 24.37 (74.84 kg, 175.26 cm) lp1 MDM: 03:18 Patient medically screened. priya 03:24 Differential diagnosis: sprain, Ureterolithiasis cholecystitis, Cholelithiasis, priya diverticulitis, non-specific abd pain, pancreatitis, Peptic Ulcer Disease. Data reviewed: vital signs, nurses notes, EMS record, [facility] records, lab test result(s), EKG, radiologic studies. Data interpreted: personnel monitor: rate is 76 beats/min, Pulse oximetry: Interpretation: normal. Test interpretation: by ED physician or midlevel provider: ECG, plain radiologic studies. Counseling: I had a detailed discussion with the patient and/or guardian regarding: the historical points, exam findings, and any diagnostic results supporting the discharge/admit diagnosis, lab results, radiology results. 03:59 Awaiting: labs results, CT scan results, still drinking contrast. priya 04:46 Response to treatment: the patient's symptoms have markedly improved after treatment. priya Awaiting: CT scan results, still wait. ED course: . ED course: pt feeling better , ct pending. 05:19 Medication response: ct contrast, lactulose, ducolax, good results. positive BM. [facility] 07/14 03:20 Order name: Basic Metabolic Panel; Complete Time: 04:45 [facility] 07/14 03:20 Order name: CBC with Diff; Complete Time: 04:45 [facility] 07/14 03:20 Order name: LFT's; Complete Time: 04:45 [facility] 07/14 03:20 Order name: Magnesium; Complete Time: 04:45 [facility] 07/14 03:20 Order name: NT PRO-BNP; Complete Time: 04:45 [facility] 07/14 03:20 Order name: PT-INR; Complete Time: 04:45 [facility] 07/14 03:20 Order name: Troponin (emerg Dept Use Only); Complete Time: 04:45 [facility] 07/14 03:20 Order name: XRAY Chest (1 view) priya 07/14 03:20 Order name: Lipase; Complete Time: 04:45 [facility] 07/14 03:20 Order name: CT Abd/Pelvis - PO and IV Contrast priya 07/14 04:27 Order name: CREATININE WHOLE BLOOD EDMS 07/14 03:20 Order name: EKG; Complete Time: 03:21 [facility] 07/14 03:20 Order name: Cardiac monitoring; Complete Time: 03:48 [facility] 07/14 03:20 Order name: EKG - Nurse/Tech; Complete Time: 03:48 [facility] 07/14 03:20 Order name: IV Saline Lock; Complete Time: 03:48 [facility] 07/14 03:20 Order name: Labs collected and sent; Complete Time: 03:48 [facility] 07/14 03:20 Order name: O2 Per Protocol; Complete Time: 03:48 [facility] 07/14 03:20 Order name: O2 Sat Monitoring; Complete Time: 03:48 [facility] 07/14 03:20 Order name: Urine Dipstick-Ancillary (obtain specimen); Complete Time: 06:20 [facility] Administered Medications: 03:50 Drug: NS 0.9% 1000 ml Route: IV; Rate: 1 bolus; Site: right forearm; rr5 03:55 Drug: Dulcolax Suppository 10 mg Route: [place]; rr5 06:05 Follow up: Response: No adverse reaction rr5 04:00 Drug: Lactulose 30 grams Volume: 45 ml; Route: PO; rr5 05:10 Follow up: Response: No adverse reaction; Other; negative BM rr5 06:20 Drug: Lactulose 30 grams Volume: 45 ml; Route: PO; rr5 06:20 Drug: Rocephin 1 grams Route: IV; Rate: per protocol; Site: right forearm; rr5 06:26 Drug: Flagyl 500 mg Volume: 100 ml; Route: IVPB; Rate: 200 ml/hr; Infused Over: 30 rr5 mins; Site: right forearm; Disposition: 07/15/19 06:22 Hospitalization ordered by Brock Lyman for Observation. Preliminary diagnosis are Abdominal tenderness, Constipation, Low back pain, Fracture of fourth lumbar vertebra - superior end plate Lumbar 4, Left sided colitis - anorectal colitis. - Bed requested for Telemetry/MedSurg (observation). - Status is Observation. hb - Condition is Fair. - Problem is new. - Symptoms have improved. Signatures: Dispatcher [employer] EDMS Nilsa Padron RN RN Fany Kent RN Fuentes Piedra MD MD cha Pena, Laura, RN RN lp1 Sandra Caraballo RN RN Dany Garrido, RN RN rr5 Corrections: (The following items were deleted from the chart) 06:46 06:22 Hospitalization Ordered by Brock Lyman MD for Observation. Preliminary diagnosis mw is Abdominal tenderness; Constipation; Low back pain; Fracture of fourth lumbar vertebra - superior end plate Lumbar 4; Left sided colitis - anorectal colitis. Bed requested for Telemetry/MedSurg (observation). Status is Observation. Condition is Fair. Problem is new. Symptoms have improved. [facility] 11:20 06:46 07/15/2019 06:22 Hospitalization Ordered by Brock Lyman MD for Observation. dw Preliminary diagnosis is Abdominal tenderness; Constipation; Low back pain; Fracture of fourth lumbar vertebra - superior end plate Lumbar 4; Left sided colitis - anorectal colitis. Bed requested for [facility] ER HOLD. Status is Observation. Condition is Fair. Problem is new. Symptoms have improved. mw 12:19 11:20 07/15/2019 06:22 Hospitalization Ordered by Brock Lyman MD for Observation. hb Preliminary diagnosis is Abdominal tenderness; Constipation; Low back pain; Fracture of fourth lumbar vertebra - superior end plate Lumbar 4; Left sided colitis - anorectal colitis. Bed requested for Telemetry/MedSurg (observation). Status is Observation. Condition is Fair. Problem is new. Symptoms have improved.
--- NOTE | 2019-07-15 06:23 | ER ---
Nurse's Notes [facility] Name: Evens Tsang Age: 84 yrs Sex: Male : 1935 Arrival Date: 07/15/2019 Time: 03:18 Bed 25 Private MD: Diagnosis: Abdominal tenderness;Constipation;Low back pain;Fracture of fourth lumbar vertebra-superior end plate Lumbar 4;Left sided colitis-anorectal colitis Presentation: 07/14 03:19 Chief complaint: EMS states: Called for patient with constipation x 2 days, complaint lp1 of nausea;. Coronavirus screen: Proceed with normal triage. Ebola Screen: No symptoms or risks identified at this time. Initial Sepsis Screen: Does the patient meet any 2 criteria? No. Patient's initial sepsis screen is negative. Does the patient have a suspected source of infection? No. Patient's initial sepsis screen is negative. Risk Assessment: Do you want to hurt yourself or someone else? Patient reports no desire to harm self or others. Onset of symptoms was July 15, 2019. Transition of care: [facility]. 03:19 Method Of Arrival: EMS: [facility] lp1 03:19 Acuity: MANISH 3 lp1 Historical: - Allergies: 03:23 NKA; lp1 - Home Meds: 03:23 Tramadol Oral [Active]; Methocarbamol Oral [Active]; Methylprednisolone Oral [Active]; lp1 - PMHx: 03:23 Glaucoma; High Cholesterol; neuropathy; lp1 - PSHx: 03:23 Hernia repair; lp1 - Immunization history:: Adult Immunizations up to date. - Social history:: Smoking status: Patient denies any tobacco usage or history of. - Family history:: not pertinent. Screenin:23 Abuse screen: Denies threats or abuse. Denies injuries from another. Nutritional lp1 screening: No deficits noted. Tuberculosis screening: No symptoms or risk factors identified. Assessment: 03:20 General: Appears in no apparent distress. comfortable, Behavior is calm, cooperative, rr5 appropriate for age. 03:20 Pain: Denies pain. Neuro: Level of Consciousness is awake, alert, obeys commands, rr5 Oriented to person, place, situation. Cardiovascular: Capillary refill < 3 seconds Patient's skin is warm and dry. Respiratory: Airway is patent Respiratory effort is even, unlabored, Respiratory pattern is regular, symmetrical. GI: Reports constipation, nausea, Patient currently denies vomiting. : No signs and/or symptoms were reported regarding the genitourinary system. EENT: No signs and/or symptoms were reported regarding the EENT system. Derm: Skin is fragile, is thin, Skin temperature is warm. Musculoskeletal: Circulation, motion, and sensation intact. Capillary refill < 3 seconds. 04:50 Reassessment: Patient appears in no apparent distress at this time. No changes from rr5 previously documented assessment. came back from CT scan,no complaints made. 05:30 Reassessment: Patient appears in no apparent distress at this time. patient helped to rr5 sit on a commode, having hard time to pass stool. 06:00 Reassessment: Patient appears in no apparent distress at this time. No changes from rr5 previously documented assessment. reassess by ED provider. patient will be for admission. additional orders given and carried out. 07:20 Reassessment: pt had 2 moderate size BM, pt reports feeling better, pt assisted back em into the bed, changed brief and applied new linen to bed. Vital Signs: 03:19 BP 159 / 85; Pulse 76; Resp 18; Temp 97.8(O); Pulse Ox 99% on R/A; Weight 74.84 kg (R); lp1 Height 5 ft. 9 in. (175.26 cm); 05:00 BP 146 / 80; Pulse 70; Resp 16; Pulse Ox 99% on R/A; rr5 06:10 BP 141 / 80; Pulse 65; Resp 17; Pulse Ox 99% ; rr5 03:19 Body Mass Index 24.37 (74.84 kg, 175.26 cm) lp1 ED Course: 03:18 Patient arrived in ED. lp1 03:18 Fuentes Sanchez MD is Attending Physician. [facility] 03:22 Triage completed. lp1 03:22 Dany Mcnair RN is Primary Nurse. rr5 03:22 Arm band placed on. lp1 03:30 Patient has correct armband on for positive identification. Placed in gown. Bed in low rr5 position. Pulse ox on. NIBP on. 03:30 Warm blanket given. rr5 03:45 Inserted saline lock: 20 gauge in right forearm, using aseptic technique. Blood ds4 collected. 03:48 NT PRO-BNP Sent. ds4 03:48 PT-INR Sent. ds4 03:48 Lipase Sent. ds4 03:49 Basic Metabolic Panel Sent. ds4 03:49 CBC with Diff Sent. ds4 03:49 LFT's Sent. ds4 03:49 Magnesium Sent. ds4 03:49 Troponin (emerg Dept Use Only) Sent. ds4 03:55 XRAY Chest (1 view) In Process Unspecified. EDMS 04:54 CT Abd/Pelvis - PO and IV Contrast In Process Unspecified. EDMS 06:15 Brock Lyman MD is Hospitalizing Provider. priya Administered Medications: 03:50 Drug: NS 0.9% 1000 ml Route: IV; Rate: 1 bolus; Site: right forearm; rr5 03:55 Drug: Dulcolax Suppository 10 mg Route: PA; rr5 06:05 Follow up: Response: No adverse reaction rr5 04:00 Drug: Lactulose 30 grams Volume: 45 ml; Route: PO; rr5 05:10 Follow up: Response: No adverse reaction; Other; negative BM rr5 06:20 Drug: Lactulose 30 grams Volume: 45 ml; Route: PO; rr5 06:20 Drug: Rocephin 1 grams Route: IV; Rate: per protocol; Site: right forearm; rr5 06:26 Drug: Flagyl 500 mg Volume: 100 ml; Route: IVPB; Rate: 200 ml/hr; Infused Over: 30 rr5 mins; Site: right forearm; Intake: Outcome: 06:22 Decision to Hospitalize by Provider. [facility] 12:19 Patient left the ED. hb Signatures: Dispatcher [employer] Fuentes Andrews MD MD cha Munoz, Edgar, RN RN Fabiana Vicente RN RN [id number] Tristen Hung ds4 Sandra Caraballo RN RN Dany Garrido RN RN rr5
[2019-07-15] MEDS ORDERED: CEFTRIAXONE/SWI 1gm 1 GM/10 ML SYR ONE (06:29)
[2019-07-15] MEDS ORDERED: METRONIDAZOLE 500mg IVPB 500 MG/100 ML BAG IV ONE (06:29)
[2019-07-15] MEDS: NA CHLORIDE 0.9% 1,000 ML IV SCH ×2 (07:12→18:31)
[2019-07-15] MEDS ORDERED: ONDANSETRON 4 MG/2 ML VIAL IV PRN (07:12)
[2019-07-15] MEDS ORDERED: BISACODYL 10 MG RECTAL SUPP PR PRN (07:12)
[2019-07-15] MEDS ORDERED: ACETAMINOPHEN 325 MG TABLET PO PRN (07:24)
[2019-07-15] MEDS ORDERED: MORPHINE 2 MG/ML SYR IV PRN (07:26)
[2019-07-15] MEDS: LACTULOSE 20 GM/30 ML UCUP PO SCH ×2 (09:00→17:52)
--- NOTE | 2019-07-15 11:37 | RAD REPORT ---
EXAM DESCRIPTION: RAD - Chest Single View - 07/15/2019 3:55 am CLINICAL HISTORY: COUGH COMPARISON: Portable July 2015 TECHNIQUE: AP portable chest image was obtained 07/15/2019 3:55 am . FINDINGS: Lung volumes are low and patient is substantially rotated. No dense consolidation in the r ight lung field. Adjusting for the shallow inspiration, the lung markings on the right are not substa ntially different. Left lung volumes are even further reduced. No large dense consolidation. Retrocar diac left base assessment is limited. Significant failure or volume overload doubtful. Heart and vasc ulature are normal. No measurable pleural effusion and no pneumothorax. No acute bony abnormality see n. No acute aortic findings suspected. IMPRESSION: Limited examination without focal consolidation. No significant failure or volume overload seen. Low lung volumes and baseline interstitial pattern could mask early edema or infiltrate.
[2019-07-15 12:12] VITALS: O2SAT 98; BMI 24.3
[2019-07-15] MEDS ORDERED: PNEUMOCOCCAL VACCINE 0.5 ML IMVAC ONE (17:00)
--- NOTE | 2019-07-15 22:18 | P.HP ---
Certification for Inpatient Patient admitted to: Observation With expected LOS: <2 Midnights Practitioner: I am a practitioner with admitting privileges, knowledge of patient current condition, hospital course, and medical plan of care. Services: Services provided to patient in accordance with Admission requirements found in Title 42 Section 412.3 of the Code of Federal Regulations Patient History Date of Service: 07/15/19 Reason for admission: ABDOMEN PAIN AND BACK PAIN History of Present Illness: MR. AVILA IS A SEVERELY KYPHOTIC GM WHO WAS SEEN BY ME FIRST TIME A FEW DAYS AGO FOR SEVERE BACK PAIN, HE WAS GIVEN MEDROL AND TRAMADOL. HE NOW HAS CONSTIPATION ALSO. HE IS ADMITTED BY DR HENRY. Allergies No Known Allergies Allergy (Verified 08/11/12 08:10) Home Medications: Gabapentin 300 mg PO BID 07/15/19 Pramipexole [Mirapex*] 0.25 mg PO DAILY 07/15/19 Prednisone [Rigo] 4 mg PO DAILY 07/15/19 Tamsulosin HCl [Flomax] 0.4 mg PO DAILY 07/15/19 Tramadol HCl/Acetaminophen [Tramadol-Acetaminophn 37.5-325] 1 tab PO BID PRN 07/15/19 methocarbamoL [Methocarbamol] 500 mg PO BID PRN 07/15/19 - Past Medical/Surgical History Has patient received pneumonia vaccine in the past: No Diabetic: No -: rt inguinal hernia repair-2008 [facility] -: appendectomy-1967 - Social History Smoking Status: Never smoker Alcohol use: No CD- Drugs: No Caffeine use: Yes Review of Systems 10-point ROS is otherwise unremarkable Physical Examination - Vital Signs Temperature: 97.4 F Blood Pressure: 148/76 Pulse: 69 Respirations: 18 Pulse Ox (%): 98 - Physical Exam General: Alert, In no apparent distress, Moderate distress HEENT: Atraumatic, PERRLA, Mucous membr. moist/pink, EOMI, Sclerae nonicteric Neck: Supple, 2+ carotid pulse no bruit, No LAD, Without JVD or thyroid abnormality Respiratory: Clear to auscultation bilaterally, Normal air movement Cardiovascular: Regular rate/rhythm, Normal S1 S2 Gastrointestinal: Normal bowel sounds, No tenderness Musculoskeletal: No tenderness, Kyphosis Integumentary: No rashes Neurological: Normal gait, Normal speech, Normal strength at 5/5 x4 extr, Normal tone, Normal affect Lymphatics: No axilla or inguinal lymphadenopathy - Studies Laboratory Data (last 24 hrs) 07/15/19 03:40: PT 12.7 H, INR 1.08 07/15/19 03:40: WBC 7.9, Hgb 15.0, Hct 44.6, Plt Count 237 07/15/19 03:40: Sodium 141, Potassium 3.7, BUN 28 H, Creatinine 0.74, Glucose 96, Magnesium 2.2, Total Bilirubin 1.0, AST 18, ALT 23, Alkaline Phosphatase 113, Lipase 64 L Assessment and Plan - Problems (Diagnosis) (1) Kyphosis Current Visit: Yes Status: Acute Plan: MRI OF L SPINE HE HAS SEVERE PAIN HERE. WILL AVOID NARCOTICS HE HAS SEVERE CONSTIPATION. 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 ONCE CLEARED WILL DO METAMUCIL, MIRALAX ETC Qualifiers: Constipation type: slow transit constipation Qualified Code(s): K59.01 - Slow transit constipation - Advance Directives Does patient have a Living Will: No Does patient have a Durable POA for Healthcare: No
[2019-07-15 22:51] LABS: MPV 7.8 fL (7.6-11.3)
[2019-07-15 23:04] LABS: Platelet Estimate ND
[2019-07-16] MEDS: TRAZODONE 50 MG TABLET PO SCH ×2 (00:17→21:07)
[2019-07-16] MEDS: GABAPENTIN 300 MG CAP PO SCH ×4 (00:17→21:07)
[2019-07-16] MEDS: LACTULOSE 20 GM/30 ML UCUP PO SCH ×2 (01:00→08:46)
[2019-07-16] MEDS: NA CHLORIDE 0.9% 1,000 ML IV SCH ×2 (04:21→13:52)
[2019-07-16 06:19] LABS: Absolute Lymphocytes (CBC) 1.9 K/uL (0.7-4.9); Basophils % 0.4 % (0-1.3); Hematocrit 38.3 % (39.6-49.0); Lymphocytes % 29.5 % (15.3-44.8); MPV 7.8 fL (7.6-11.3); RBC Red Blood Cell Count 4.13 M/uL (4.33-5.43)
[2019-07-16 06:24] LABS: ALT/SGPT 20 U/L (12-78); AST/SGOT 15 U/L (15-37); Albumin 2.9 g/dL (3.4-5.0); Alkaline Phosphatase 91 U/L (45-117); BUN Blood Urea Nitrogen 17 mg/dL (7-18); Bicarbonate 24 mmol/L (21-32); Bilirubin Direct 0.3 mg/dL (0-0.2); Glucose Level 88 mg/dL (74-106); Lipase 63 U/L (73-393); Potassium 3.1 mmol/L (3.5-5.1); Protein, Total 5.8 g/dL (6.4-8.2); Sodium Level 142 mmol/L (136-145)
--- NOTE | 2019-07-16 08:45 | RAD REPORT ---
EXAM DESCRIPTION: CT - Abdomen Pelvis W Contrast - 07/15/2019 6:59 am CLINICAL HISTORY: The patient is 84 years old and is Male; ABD PAIN TECHNIQUE: Axial computed tomography images of the abdomen and pelvis with intravenous contrast. S agittal and coronal reformatted images were created and reviewed. This CT exam was performed using one or more of the following dose reduction techniques: automated exposure control, adjustment of t he mA and/or kV according to patient size, and/or use of iterative reconstruction technique. COMPARISON: CT abdomen pelvis contrast August 01, 2017. FINDINGS: Lung bases: Unremarkable. No mass. No consolidation. ABDOMEN: Liver: Right hepatic simple cyst, 2.2 cm. Gallbladder and bile ducts: Unremarkable. No calcified stones. No ductal dilation. Pancreas: No findings to suggest acute pancreatitis. No mass visualized. No ductal dilation. Spleen: Unremarkable. No splenomegaly. Adrenals: Unremarkable. No mass. Kidneys and ureters: Punctate right nephrolithiasis. No hydronephrosis or ureter stone. Bilateral renal simple cysts, largest measuring 1.4 cm on the right. Stomach and bowel: Large amount of stool in the rectum. Anorectal wall thickening raises suspici on for distal colitis. Left scrotal hernia containing small bowel and a short segment of sigmoid colon. This is inc ompletely evaluated but the images provided demonstrate no evidence of edema/incarceration. No bowel dilatation or obstruction. Stomach is unremarkable. PELVIS: Appendix: The appendix is not visualized. No pericecal inflammation to suggest acute appendiciti s. Bladder: Unremarkable. No mass. Reproductive: Enlarged prostate gland. ABDOMEN and PELVIS: Intraperitoneal space: Unremarkable. No free air. No significant fluid collection. Bones/joints: Suspect acute fracture in the superior endplate of L4 with less than 25% loss of h eight. No retropulsion Old compression fractures of T12 and L1/vertebra plana with mild to moderate central canal s tenosis. Scoliosis. No dislocation. Soft tissues: Right inguinal surgical clips. Vasculature: Unremarkable. No abdominal aortic aneurysm. Lymph nodes: No pathologically enlarged lymph nodes. IMPRESSION: 1. Large amount of stool in the rectum. Anorectal wall thickening raises suspicion for distal colitis. 2. Left scrotal hernia containing small bowel and a short segment of sigmoid colon. This is incompl etely evaluated but the images provided demonstrate no evidence of edema/incarceration. 3. Suspect acute fracture in the superior endplate of L4 with less than 25% loss of height. No retr opulsion 4. Old compression fractures of T12 and L1/vertebra plana with mild to moderate central canal steno sis. 5. Enlarged prostate gland. 6. Additional non-emergent findings as above. Electronically signed by: Nasrin Pruitt MD 07/15/2019 5:32 AM CDT Due to temporary technical issues with the PACS/Fluency reporting system, reports are being signed by the in house radiologist without review as a courtesy to ensure prompt reporting. The interpreting r adiologist is fully responsible for the content of the report.
[2019-07-16] MEDS: ENOXAPARIN 40 MG/0.4 ML SQ SCH (08:46)
[2019-07-16] MEDS: LIDOCAINE 4% PATCH TOP SCH (08:46)
--- NOTE | 2019-07-16 08:55 | EKG ---
Test Date: 2019-07-15 Test Time: 03:41:55 [place] Trapper: RR MEASUREMENT RESULTS: Intervals: Rate: 64 OH: 176 QRSD: 80 QT: 386 QTc: 398 [place]: P: 47 OH: 176 QRS: 37 T: 41 INTERPRETIVE STATEMENTS: Normal sinus rhythm Normal ECG Compared to ECG 02/27/2017 12:00:34 No significant changes Electronically Signed On 07-16-19 08:53:57 CDT by Jay Junior
[2019-07-16] MEDS ORDERED: POTASSIUM CL SA 10 MEQ TAB PO ONE (12:00)
[2019-07-16] MEDS ORDERED: methocarbamoL 500 MG TAB PO PRN (12:04)
--- NOTE | 2019-07-16 13:03 | PN ---
History: Mr. Tsang is comfortable in the bed. He is not able to get out of bed. He says his feet are numb now below the ankle region, this is new. His back pain is controlled, but again he is layin g in the bed currently without any movement. Constipation has resolved. He has had multiple bowel m ovements on lactulose. Physical Examination: Clinically comfortable. Not able to ambulate. We need physical therapy to ambulate him before he goes home or assisted living facility because othe rwise he will fall and break a bone. I am doing MRI of lumbar spine to define the status of his lumb osacral radiculopathy. Prognosis remains overall guarded. He is a fall risk. RVD/MODL Voice ID: [id number] Report ID: [id number]
--- NOTE | 2019-07-16 13:19 | RAD REPORT ---
EXAM DESCRIPTION: MRI - Lumbar Spine Wo Con- 07/16/2019 1:07 pm CLINICAL HISTORY: back pain Back pain and radiculopathy. COMPARISON: Abdomen Pelvis W Contrast dated 07/15/2019 FINDINGS: High-grade wedge compression fractures affect T12 and L1 with mild edema signal and loss o f vertebral body height estimated at 75-80%. Moderate canal compromise is present at both of these le vels caused by bony retropulsion. Mild compression fractures also seen affecting L4 with vertebral body height loss at 15-20%. Mild bon y retropulsion results in mild canal narrowing. No severe canal or foraminal stenosis identified at any level. No paraspinal mass or hematoma. 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 Mild subacute osteoporotic compression fracture of L4 with mild central canal stenosis.
[2019-07-16] MEDS ORDERED: GABAPENTIN 300 MG CAP PO SCH (14:00)
[2019-07-17] MEDS: TRAMADOL 37.5mg/APAP 325mg PER TAB PO PRN (01:30)
[2019-07-17 06:24] LABS: Absolute Lymphocytes (CBC) 1.1 K/uL (0.7-4.9); Basophils % 0.3 % (0-1.3); Hematocrit 39.5 % (39.6-49.0); Lymphocytes % 15.6 % (15.3-44.8); MPV 7.8 fL (7.6-11.3); RBC Red Blood Cell Count 4.24 M/uL (4.33-5.43)
[2019-07-17] MEDS: NA CHLORIDE 0.9% 1,000 ML IV SCH ×2 (08:00→09:25)
[2019-07-17] MEDS ORDERED: PREDNISONE 4 MG PO SCH (09:00)
[2019-07-17] MEDS: LIDOCAINE 4% PATCH TOP SCH (09:26)
[2019-07-17] MEDS: TAMSULOSIN 0.4 MG SR CAP PO SCH (09:26)
[2019-07-17] MEDS: ENOXAPARIN 40 MG/0.4 ML SQ SCH (09:27)
[2019-07-17] MEDS: PRAMIPEXOLE 0.25 MG TAB PO SCH (09:27)
[2019-07-17] MEDS: GABAPENTIN 300 MG CAP PO SCH ×3 (09:28→20:55)
--- NOTE | 2019-07-17 12:33 | P.PN ---
Subjective Date of Service: 07/17/19 Chief Complaint: ABDOMEN PAIN AND BACK PAIN Subjective: Improving HE IS SLEEPY TODAY. HE WAS GIVEN TRAZODONE HE COULD NOT SLEEP. Review of Systems 10-point ROS is otherwise unremarkable General: Weakness Physical Examination - Vital Signs Temperature: 98.7 F Blood Pressure: 114/60 Pulse: 84 Respirations: 18 Pulse Ox (%): 98 - Physical Exam General: Mild distress, Moderate distress HEENT: Atraumatic, PERRLA, EOMI Neck: Supple, JVD not distended Respiratory: Clear to auscultation bilaterally, Normal air movement Cardiovascular: Regular rate/rhythm, Normal S1 S2 Gastrointestinal: Normal bowel sounds, No tenderness Musculoskeletal: Kyphosis (SEVERE.) Integumentary: No rashes Neurological: Normal speech, Normal tone, Normal affect Lymphatics: No axilla or inguinal lymphadenopathy - Studies Medications List Reviewed: Yes Assessment And Plan - Current Problems (Diagnosis) (1) Kyphosis Current Visit: Yes Status: Acute Plan: MRI OF L SPINE HE HAS SEVERE PAIN HERE. WILL AVOID NARCOTICS HE HAS SEVERE CONSTIPATION. REFER TO REHAB. WAITING FOR INS APPROVAL. 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 ONCE CLEARED WILL DO METAMUCIL, MIRALAX ETC Qualifiers: Constipation type: slow transit constipation Qualified Code(s): K59.01 - Slow transit constipation (3) Vertebral fracture, closed Current Visit: Yes Status: Acute Plan: T12 AND L1 FRACTURE. HE MAY NEED KYPHOPLASTY IF PAIN IS UNBEARABLE I TALKED TO DAUGHTER. SHE UNDERSTOOD. WILL START BONE DENSITY RX. Qualifiers: Thoracic vertebra fracture level: T12
[2019-07-17 13:16] LABS: BUN Blood Urea Nitrogen 13 mg/dL (7-18); Bicarbonate 25 mmol/L (21-32); Glucose Level 142 mg/dL (74-106); Magnesium 2.2 mg/dL (1.8-2.4); Potassium 3.5 mmol/L (3.5-5.1); Sodium Level 141 mmol/L (136-145)
[2019-07-17] MEDS: TRAZODONE 50 MG TABLET PO SCH (20:55)
[2019-07-18] MEDS: NA CHLORIDE 0.9% 1,000 ML IV SCH (04:00)
[2019-07-18] MEDS: TAMSULOSIN 0.4 MG SR CAP PO SCH (08:07)
[2019-07-18] MEDS: GABAPENTIN 300 MG CAP PO SCH ×2 (08:07→14:21)
[2019-07-18] MEDS: ENOXAPARIN 40 MG/0.4 ML SQ SCH (08:07)
[2019-07-18] MEDS: LIDOCAINE 4% PATCH TOP SCH (08:07)
[2019-07-18] MEDS: PRAMIPEXOLE 0.25 MG TAB PO SCH (08:07)
[2019-07-18] MEDS: TRAMADOL 37.5mg/APAP 325mg PER TAB PO PRN (11:14)
[2019-07-18 16:50] VITALS: BP 102/55; TEMP 97.3
== END 2019-07-18 19:10 | disposition short-term general hospital (02) ==
LOC: ER 02:43 → ERHOLD 06:34 → 2ND 12:02
PROVIDERS: ADMIT Internal Medicine; ATTEND Internal Medicine
DX: M40.04 Postural kyphosis, thoracic region (principal); K59.01 Slow transit constipation; H40.9 Unspecified glaucoma; E78.00 Pure hypercholesterolemia, unspecified; S22.089A Unspecified fracture of T11-T12 vertebra, initial encounter for closed fracture
CPT/HCPCS: 93005; 85025 ×3; 80048 ×3; 36415 ×3; 83735 ×2; 85049; 85610; 82565; 80076 ×2; 84484; 83690 ×2; 83880; 74177; 71045; 72148; 97112; 97116 ×6; 97161; 97530 ×2; 96375; 96374; 99284; Q9967; J1650 ×3; J2270; J0696; G0378 ×6; J7030 ×7